=== PATIENT | female | born 1985 | race Caucasian/White ===

== ENCOUNTER 2017-08-11 10:07 | Inpatient (IN) | payer MEDICAID ==
[2017-08-11] MEDS ORDERED: LIDOCAINE 1% (MPF) 30 ML INJ INJ (11:00)
[2017-08-11] MEDS ORDERED: OXYTOCIN 30 UNITS/LR 500 ML IV (11:00)
[2017-08-11] MEDS ORDERED: BUTORPHANOL 2 MG INJ IV ×2 (11:00)
[2017-08-11] MEDS ORDERED: CARBOPROST 250 MCG INJ IM (11:00)
[2017-08-11] MEDS ORDERED: MISOPROSTOL 200 MCG TAB PR (11:00)
[2017-08-11] MEDS ORDERED: METHYLERGONOVINE 0.2 MG INJ IM (11:00)
[2017-08-11 11:19] LABS: ADD MAN DIFF? NO
[2017-08-11 11:21] LABS: WHITE BLOOD COUNT 7.6 10^3/ul (4.8-10.8)
[2017-08-11 11:21] LABS: BASOPHILS % 0.4 % (0.0-2.0); EOSINOPHILS # 0.1 10^3/ul (0.0-0.5); EOSINOPHILS % 1.1 % (0.0-7.0); HEMATOCRIT 36.1 % (37.0-47.0); HEMOGLOBIN 12.2 g/dl (12.0-16.0); LYMPHOCYTES # 1.5 10^3/ul (0.8-2.9); LYMPHOCYTES % 19.6 % (15.0-51.0); MEAN CORPUSCULAR HEMOGLOBIN 30.7 pg (29.0-33.0); MEAN CORPUSCULAR HGB CONC 33.8 g/dl (32.0-37.0); MEAN CORPUSCULAR VOLUME 90.7 fl (82.0-101.0); MEAN PLATELET VOLUME 10.1 fl (7.4-10.4); MONOCYTE # 0.5 10^3/ul (0.3-0.9); MONOCYTES % 6.7 % (0.0-11.0); NEUTROPHIL # 5.4 10^3/ul (1.6-7.5); NEUTROPHILS % 71.7 % (39.0-77.0); PLATELET COUNT 261 10^3/UL (140-415); RED BLOOD COUNT 3.98 10^6/ul (4.20-5.40)
[2017-08-11 11:24] LABS: INR 0.83; PROTIME 11.5 Sec (11.9-14.9); PT RATIO 0.9
[2017-08-11 11:25] LABS: PARTIAL THROMBOPLASTIN TIME 28.2 Sec (25.0-35.0)
[2017-08-11] MEDS: LACTATED RINGER'S 1,000 ML IV ×4 (11:37→20:41)
[2017-08-11 11:58] LABS: HEPATITIS B SURFACE ANTIGEN NEGATIVE (NEGATIVE)
[2017-08-11] MEDS: DINOPROSTONE 10 MG VAG SUPP VAG (15:06)
[2017-08-11] MEDS: OXYTOCIN 30 UNITS/LR 500 ML IV (16:02)
[2017-08-11] MEDS ORDERED: FENTAnyl 2MCG/ML-ROPIV 0.2% 100 ML (19:34)
[2017-08-11] MEDS ORDERED: NALOXONE (0.4 MG/ML) INJ IV (20:00)
[2017-08-11] MEDS: FENTAnyl 2MCG/ML-ROPIV 0.2% 100 ML BAG EPI (20:41)
[2017-08-11 20:53] LABS: RAPID PLASMA REAGIN NONREACTIVE (NR)
[2017-08-12] MEDS: ONDANSETRON 4 MG INJ IV (00:42)
[2017-08-12] MEDS: LACTATED RINGER'S 1,000 ML IV (01:00)
[2017-08-12] MEDS: FENTAnyl 2MCG/ML-ROPIV 0.2% 100 ML BAG EPI (02:28)
[2017-08-12] MEDS: OXYTOCIN 30 UNITS/LR 500 ML IV ×2 (05:11→05:32)
[2017-08-12] MEDS: IBUPROFEN 600 MG TAB PO ×4 (06:08→23:32)
[2017-08-12] MEDS ORDERED: OXYCODONE/ASPIRIN (4.88/325) TAB PO (08:00)
[2017-08-12] MEDS ORDERED: OXYTOCIN 30 UNITS/LR 500 ML IV (08:00)
[2017-08-12] MEDS ORDERED: METHYLERGONOVINE 0.2 MG INJ IM (08:00)
[2017-08-12] MEDS ORDERED: MISOPROSTOL 200 MCG TAB PR (08:00)
[2017-08-12] MEDS ORDERED: CARBOPROST 250 MCG INJ IM (08:00)
[2017-08-12] MEDS ORDERED: ZOLPIDEM 5 MG TAB PO (08:00)
[2017-08-12] MEDS ORDERED: OXYCODONE/ASPIRIN (4.88/325) TAB (08:09)
[2017-08-12] MEDS: OXYCODONE/ASPIRIN (4.88/325) TAB PO (08:22)
[2017-08-12] MEDS: LANOLIN 7 GM TUBE TOP (10:35)
[2017-08-12] MEDS: SENNA/DOCUSATE NA (8.6MG/50MG) TAB PO ×2 (10:35→21:15)
[2017-08-12] MEDS: BENZOCAINE 20% 56 ML SPRAY TOP (10:35)
[2017-08-12] MEDS: WITCH HAZEL/GLYCERIN PAD PR (10:35)
[2017-08-13] MEDS: IBUPROFEN 600 MG TAB PO ×4 (06:00→23:24)
[2017-08-13] MEDS ORDERED: CEFAZOLIN 1 GM INJ (07:00)
[2017-08-13] MEDS: SENNA/DOCUSATE NA (8.6MG/50MG) TAB PO ×2 (07:09→21:16)
[2017-08-13] MEDS: DIPHTH/TET/ACEL PERTUSS (ADULT) 0.5 ML VIAL IM* (10:06)
[2017-08-13 10:08] LABS: ADD MAN DIFF? NO
[2017-08-13 10:16] LABS: WHITE BLOOD COUNT 6.9 10^3/ul (4.8-10.8)
[2017-08-13 10:16] LABS: BASOPHILS % 0.4 % (0.0-2.0); EOSINOPHILS # 0.1 10^3/ul (0.0-0.5); EOSINOPHILS % 1.7 % (0.0-7.0); HEMOGLOBIN 10.5 g/dl (12.0-16.0); LYMPHOCYTES # 1.3 10^3/ul (0.8-2.9); MEAN CORPUSCULAR HEMOGLOBIN 31.3 pg (29.0-33.0); MEAN CORPUSCULAR HGB CONC 33.9 g/dl (32.0-37.0); MEAN CORPUSCULAR VOLUME 92.3 fl (82.0-101.0); MEAN PLATELET VOLUME 9.8 fl (7.4-10.4); MONOCYTE # 0.4 10^3/ul (0.3-0.9); MONOCYTES % 5.6 % (0.0-11.0); NEUTROPHILS % 72.9 % (39.0-77.0); PLATELET COUNT 204 10^3/UL (140-415); RED BLOOD COUNT 3.36 10^6/ul (4.20-5.40); RED CELL DISTRIBUTION WIDTH 14.3 % (11.5-14.5)
[2017-08-13] MEDS ORDERED: METOCLOPRAMIDE 10 MG INJ (13:10)
[2017-08-13] MEDS ORDERED: MIDAZOLAM 1 MG/ML 2 ML INJ (13:11)
[2017-08-13] MEDS ORDERED: morphine SULFATE/PF (10 MG/10 ML) INJ (13:12)
[2017-08-13] MEDS ORDERED: PROPOFOL 20 ML (13:37)
[2017-08-13] MEDS ORDERED: EPHEDrine SULFATE 50 MG/5 ML SYG (13:37)
[2017-08-13] MEDS: BUPIVACAINE 0.25%/EPI (SDV) 30 ML INJ (13:44)
[2017-08-13] MEDS ORDERED: ONDANSETRON 4 MG INJ (14:01)
[2017-08-13] MEDS ORDERED: KETOROLAC 30 MG INJ ×2 (14:02→15:08)
[2017-08-13] MEDS ORDERED: KETOROLAC 60 MG INJ IM (14:18)
[2017-08-13] MEDS ORDERED: LACTATED RINGER'S 1,000 ML IV (14:18)
[2017-08-13] MEDS ORDERED: DIPHENHYDRAMINE 50 MG INJ IV (14:30)
[2017-08-13] MEDS ORDERED: HYDROmorphONE (0.2 MG/ML) 10ML SYG IV ×3 (14:30)
[2017-08-13] MEDS ORDERED: ONDANSETRON 4 MG INJ IV (14:30)
[2017-08-13] MEDS ORDERED: MEPERIDINE 25 MG INJ IV (14:30)
[2017-08-13] MEDS: BUTORPHANOL 2 MG INJ IM (15:11)
[2017-08-13] MEDS: KETOROLAC 30 MG INJ IM (15:17)
[2017-08-13] MEDS: CEFAZOLIN 2 GM/50 ML (PMX) 50 ML IVPB (15:18)
[2017-08-13] MEDS ORDERED: LACTATED RINGER'S 1,000 ML IV* (15:54)
[2017-08-13] MEDS ORDERED: DIBUCAINE 1% 30 GM OINT PR (16:00)
[2017-08-13] MEDS ORDERED: HYDROCODONE/APAP (5/325) TAB PO ×2 (16:00)
[2017-08-13] MEDS ORDERED: WITCH HAZEL/GLYCERIN PAD PR (16:00)
[2017-08-13] MEDS ORDERED: BENZOCAINE 20% 56 ML SPRAY TOP (16:00)
[2017-08-13] MEDS ORDERED: LANOLIN 7 GM TUBE TOP (16:00)
[2017-08-13] MEDS ORDERED: ZOLPIDEM 5 MG TAB PO (16:00)
[2017-08-13] MEDS: LACTATED RINGER'S 500 ML IV (16:21)
[2017-08-13] MEDS: CEPHALEXIN 500 MG CAP PO ×2 (18:00→23:24)
[2017-08-13] MEDS: MAGNESIUM HYDROXIDE 30ML CUP PO (21:16)
[2017-08-14] MEDS: CEPHALEXIN 500 MG CAP PO ×2 (05:32→11:34)
[2017-08-14] MEDS: IBUPROFEN 600 MG TAB PO ×2 (05:32→11:34)
[2017-08-14] MEDS: SENNA/DOCUSATE NA (8.6MG/50MG) TAB PO (08:21)
[2017-08-14] MEDS: MAGNESIUM HYDROXIDE 30ML CUP PO (08:21)
[2017-08-14 08:45] LABS: ADD MAN DIFF? NO
[2017-08-14 08:55] LABS: WHITE BLOOD COUNT 7.2 10^3/ul (4.8-10.8)
[2017-08-14 08:55] LABS: BASOPHILS % 0.3 % (0.0-2.0); EOSINOPHILS # 0.1 10^3/ul (0.0-0.5); EOSINOPHILS % 1.2 % (0.0-7.0); HEMATOCRIT 31.3 % (37.0-47.0); HEMOGLOBIN 10.5 g/dl (12.0-16.0); LYMPHOCYTES # 1.6 10^3/ul (0.8-2.9); LYMPHOCYTES % 22.1 % (15.0-51.0); MEAN CORPUSCULAR HEMOGLOBIN 31.2 pg (29.0-33.0); MEAN CORPUSCULAR HGB CONC 33.5 g/dl (32.0-37.0); MEAN CORPUSCULAR VOLUME 92.9 fl (82.0-101.0); MEAN PLATELET VOLUME 9.8 fl (7.4-10.4); MONOCYTE # 0.5 10^3/ul (0.3-0.9); MONOCYTES % 6.6 % (0.0-11.0); NEUTROPHILS % 69.4 % (39.0-77.0); PLATELET COUNT 222 10^3/UL (140-415); RED BLOOD COUNT 3.37 10^6/ul (4.20-5.40); RED CELL DISTRIBUTION WIDTH 14.6 % (11.5-14.5)
[2017-08-15] MEDS ORDERED: VARICELLA VACCINE LIVE/PF 1,350 UNIT/0.5 ML ML SC* (09:00)
[2017-08-15] MEDS ORDERED: MEASLES,MUMPS,RUBELLA VACCINE INJ SC* (09:00)
[2017-08-15] MEDS ORDERED: DIPHTH/TET/ACEL PERTUSS (ADULT) 0.5 ML VIAL IM* (09:00)
== END 2017-08-14 13:10 | disposition home or self-care (01) | DRG 941 ==
LOC: L-D 10:07 → PP1 08-12 10:53
PROVIDERS: Obstetrics & Gynecology
PROC: 3E0P7VZ Introduction of Hormone into Female Reproductive, Via Natural or Artificial Opening (ICD-10-PCS; 2017-08-11 10:00)
PROC: 0UL70ZZ Occlusion of Bilateral Fallopian Tubes, Open Approach (ICD-10-PCS; 2017-08-13 12:30)
PROC: 10E0XZZ Delivery of Products of Conception, External Approach (ICD-10-PCS; principal; 2017-08-13 13:09)
DX: Z37.0 Single live birth (principal); O80 Encounter for full-term uncomplicated delivery; Z30.2 Encounter for sterilization
CPT/HCPCS: 76815; 76816; 85025; 85610; 85730; 86592; 86885; 86900; 86901; 87086; 87340; 88302

== ENCOUNTER 2018-11-10 06:29 | Emergency (ER) | payer MEDICAID ==
[2018-11-10 06:55] LABS: ADD MAN DIFF? NO
[2018-11-10 06:57] LABS: ADD UMIC YES; UR ASCORBIC ACID NEGATIVE (NEGATIVE); UR BACTERIA FEW /HPF (NONE SEEN); UR BILIRUBIN (Dip) NEGATIVE (NEGATIVE); UR BLOOD (Dip) 2+ mg/dL (NEGATIVE); UR CLARITY SLIGHTLY CLOUDY (CLEAR); UR COLOR YELLOW (YELLOW); UR GLUCOSE (Dip) NEGATIVE (NEGATIVE); UR KETONES (Dip) NEGATIVE (NEGATIVE); UR LEUKOCYTE ESTERASE (Dip) 2+ Leu/ul (NEGATIVE); UR NITRITE (Dip) NEGATIVE (NEGATIVE); UR RBC 5 /HPF (0-5); UR SPECIFIC GRAVITY (Dip) 1.025 (1.003-1.030); UR SQUAMOUS EPITHELIAL CELL MODERATE /HPF (FEW); UR TOTAL PROTEIN (Dip) NEGATIVE (NEGATIVE); UR UROBILINOGEN (Dip) NEGATIVE (NEGATIVE); UR WBC 15 /HPF (0-5)
[2018-11-10 06:58] LABS: BASOPHILS % 0.5 % (0.0-2.0); EOSINOPHILS # 0.2 10^3/ul (0.0-0.5); EOSINOPHILS % 2.2 % (0.0-7.0); HEMATOCRIT 38.7 % (37.0-47.0); HEMOGLOBIN 12.7 g/dl (12.0-16.0); LYMPHOCYTES # 2.5 10^3/ul (0.8-2.9); LYMPHOCYTES % 31.3 % (15.0-51.0); MEAN CORPUSCULAR HEMOGLOBIN 29.8 pg (29.0-33.0); MEAN CORPUSCULAR HGB CONC 32.8 g/dl (32.0-37.0); MEAN CORPUSCULAR VOLUME 90.8 fl (82.0-101.0); MEAN PLATELET VOLUME 9.6 fl (7.4-10.4); MONOCYTE # 0.6 10^3/ul (0.3-0.9); MONOCYTES % 6.8 % (0.0-11.0); NEUTROPHIL # 4.7 10^3/ul (1.6-7.5); NEUTROPHILS % 58.8 % (39.0-77.0); PLATELET COUNT 292 10^3/UL (140-415); RED BLOOD COUNT 4.26 10^6/ul (4.20-5.40); RED CELL DISTRIBUTION WIDTH 12.4 % (11.5-14.5)
[2018-11-10 06:58] LABS: WHITE BLOOD COUNT 8.1 10^3/ul (4.8-10.8)
[2018-11-10] MEDS: morphine 4 MG/ML VIAL IV (07:00)
[2018-11-10] MEDS: KETOROLAC 15 MG INJ IV (07:00)
[2018-11-10] MEDS: ONDANSETRON 4 MG INJ IV (07:00)
[2018-11-10] MEDS: SOD CHLORIDE 0.9% 150 ML IV (07:09)
[2018-11-10] MEDS: SOD CHLORIDE 0.9% 1,000 ML IV (07:31)
[2018-11-10 07:37] LABS: ALBUMIN/GLOBULIN RATIO 1.48; ANION GAP 12 (5-13); BILIRUBIN,TOTAL 0.2 mg/dl (0.2-1.3); Estimated GFR > 60 mL/min (>60)
[2018-11-10 07:45] LABS: ALANINE AMINOTRANSFERASE 29 IU/L (13-69); ALBUMIN 4.6 g/dl (3.3-4.9); ALKALINE PHOSPHATASE 132 IU/L (42-121); ASPARTATE AMINO TRANSFERASE 20 IU/L (15-46); BILIRUBIN,INDIRECT 0.2 mg/dl (0-1.1); BLOOD UREA NITROGEN 20 mg/dl (7-20); CALCIUM 9.7 mg/dl (8.4-10.2); CARBON DIOXIDE 24 mmol/L (21-31); CHLORIDE 106 mmol/L (97-110); CREATININE 0.56 mg/dl (0.44-1.00); GLUCOSE 122 mg/dl (70-220); LIPASE 148 U/L (23-300); POTASSIUM 4.2 mmol/L (3.5-5.1); SODIUM 142 mmol/L (135-144); TOTAL PROTEIN 7.7 g/dl (6.1-8.1)
[2018-11-10] MEDS: PIPER-TAZO 3.375 GM IV (PMX) 100 ML IVPB (08:17)
== END 2018-11-10 09:09 | disposition home or self-care (01) ==
LOC: FTE 06:29
DX: K81.9 Cholecystitis, unspecified (principal)
CPT/HCPCS: 36415; 76705; 80053; 81001; 81025; 83690; 85025; 96361; 96374; 96375; 99285-25

== ENCOUNTER 2018-11-29 03:50 | Emergency (ER) | payer MEDICAID ==
[2018-11-29] MEDS: ONDANSETRON (ODT) 4 MG TAB ODT (04:30)
[2018-11-29] MEDS: KETOROLAC 30 MG INJ IM (04:36)
[2018-11-29 04:46] LABS: ADD MAN DIFF? NO
[2018-11-29 04:48] LABS: WHITE BLOOD COUNT 10.1 10^3/ul (4.8-10.8)
[2018-11-29 04:48] LABS: BASOPHILS % 0.4 % (0.0-2.0); EOSINOPHILS # 0.3 10^3/ul (0.0-0.5); EOSINOPHILS % 2.7 % (0.0-7.0); HEMOGLOBIN 12.4 g/dl (12.0-16.0); LYMPHOCYTES % 29.7 % (15.0-51.0); MEAN CORPUSCULAR HEMOGLOBIN 30.3 pg (29.0-33.0); MEAN CORPUSCULAR HGB CONC 33.5 g/dl (32.0-37.0); MEAN CORPUSCULAR VOLUME 90.5 fl (82.0-101.0); MEAN PLATELET VOLUME 10.3 fl (7.4-10.4); MONOCYTE # 0.6 10^3/ul (0.3-0.9); MONOCYTES % 6.2 % (0.0-11.0); NEUTROPHIL # 6.1 10^3/ul (1.6-7.5); NEUTROPHILS % 60.8 % (39.0-77.0); PLATELET COUNT 287 10^3/UL (140-415); RED BLOOD COUNT 4.09 10^6/ul (4.20-5.40); RED CELL DISTRIBUTION WIDTH 12.4 % (11.5-14.5)
[2018-11-29 04:49] LABS: ADD UMIC YES; UR ASCORBIC ACID NEGATIVE (NEGATIVE); UR BACTERIA FEW /HPF (NONE SEEN); UR BILIRUBIN (Dip) NEGATIVE (NEGATIVE); UR BLOOD (Dip) 2+ mg/dL (NEGATIVE); UR CLARITY SLIGHTLY CLOUDY (CLEAR); UR COLOR YELLOW (YELLOW); UR GLUCOSE (Dip) NEGATIVE (NEGATIVE); UR KETONES (Dip) NEGATIVE (NEGATIVE); UR LEUKOCYTE ESTERASE (Dip) TRACE Leu/ul (NEGATIVE); UR NITRITE (Dip) NEGATIVE (NEGATIVE); UR RBC 4 /HPF (0-5); UR SPECIFIC GRAVITY (Dip) 1.021 (1.003-1.030); UR SQUAMOUS EPITHELIAL CELL FEW /HPF (FEW); UR TOTAL PROTEIN (Dip) NEGATIVE (NEGATIVE); UR UROBILINOGEN (Dip) NEGATIVE (NEGATIVE); UR WBC 6 /HPF (0-5)
[2018-11-29 05:04] LABS: ALANINE AMINOTRANSFERASE 29 IU/L (13-69); ALBUMIN 4.5 g/dl (3.3-4.9); ALKALINE PHOSPHATASE 94 IU/L (42-121); ANION GAP 13 (5-13); ASPARTATE AMINO TRANSFERASE 21 IU/L (15-46); BILIRUBIN,INDIRECT 0.3 mg/dl (0-1.1); BILIRUBIN,TOTAL 0.3 mg/dl (0.2-1.3); BLOOD UREA NITROGEN 16 mg/dl (7-20); CALCIUM 9.7 mg/dl (8.4-10.2); CARBON DIOXIDE 24 mmol/L (21-31); CHLORIDE 103 mmol/L (97-110); CREATININE 0.55 mg/dl (0.44-1.00); Estimated GFR > 60 mL/min (>60); GLUCOSE 111 mg/dl (70-220); LIPASE 123 U/L (23-300); POTASSIUM 4.1 mmol/L (3.5-5.1); SODIUM 140 mmol/L (135-144); TOTAL PROTEIN 7.7 g/dl (6.1-8.1)
== END 2018-11-29 05:55 | disposition home or self-care (01) ==
LOC: FTE 03:50
DX: K80.50 Calculus of bile duct without cholangitis or cholecystitis without obstruction (principal)
CPT/HCPCS: 36415; 76705; 80053; 81001; 81025; 83690; 85025; 96372; 99285-25

== ENCOUNTER 2019-02-05 01:24 | Inpatient (IN) | payer MEDICAID ==
[2019-02-05] MEDS: morphine 4 MG/ML VIAL IV (01:56)
[2019-02-05] MEDS: SOD CHLORIDE 0.9% 1,000 ML IV ×4 (01:56→21:38)
[2019-02-05] MEDS: ONDANSETRON 4 MG INJ IV ×2 (01:57→20:30)
[2019-02-05] MEDS: KETOROLAC 15 MG INJ IV (02:30)
[2019-02-05 02:33] LABS: ADD MAN DIFF? NO
[2019-02-05 02:36] LABS: WHITE BLOOD COUNT 9.5 10^3/ul (4.8-10.8)
[2019-02-05 02:36] LABS: BASOPHIL # 0.1 10^3/ul (0.0-0.1); BASOPHILS % 0.6 % (0.0-2.0); EOSINOPHILS # 0.2 10^3/ul (0.0-0.5); EOSINOPHILS % 2.2 % (0.0-7.0); HEMATOCRIT 36.9 % (37.0-47.0); HEMOGLOBIN 12.5 g/dl (12.0-16.0); LYMPHOCYTES # 3.6 10^3/ul (0.8-2.9); LYMPHOCYTES % 37.4 % (15.0-51.0); MEAN CORPUSCULAR HEMOGLOBIN 29.6 pg (29.0-33.0); MEAN CORPUSCULAR HGB CONC 33.9 g/dl (32.0-37.0); MEAN CORPUSCULAR VOLUME 87.4 fl (82.0-101.0); MEAN PLATELET VOLUME 10.3 fl (7.4-10.4); MONOCYTE # 0.6 10^3/ul (0.3-0.9); MONOCYTES % 6.2 % (0.0-11.0); NEUTROPHIL # 5.1 10^3/ul (1.6-7.5); NEUTROPHILS % 53.4 % (39.0-77.0); PLATELET COUNT 303 10^3/UL (140-415); RED BLOOD COUNT 4.22 10^6/ul (4.20-5.40); RED CELL DISTRIBUTION WIDTH 12.3 % (11.5-14.5)
[2019-02-05 02:53] LABS: ALANINE AMINOTRANSFERASE 32 IU/L (13-69); ALBUMIN 4.9 g/dl (3.3-4.9); ALBUMIN/GLOBULIN RATIO 1.28; ALKALINE PHOSPHATASE 95 IU/L (42-121); ANION GAP 14 (5-13); ASPARTATE AMINO TRANSFERASE 30 IU/L (15-46); BILIRUBIN,INDIRECT 0.3 mg/dl (0-1.1); BILIRUBIN,TOTAL 0.3 mg/dl (0.2-1.3); BLOOD UREA NITROGEN 24 mg/dl (7-20); CALCIUM 9.8 mg/dl (8.4-10.2); CARBON DIOXIDE 25 mmol/L (21-31); CHLORIDE 103 mmol/L (97-110); CREATININE 0.65 mg/dl (0.44-1.00); Estimated GFR > 60 mL/min (>60); GLUCOSE 124 mg/dl (70-220); LIPASE 138 U/L (23-300); POTASSIUM 3.7 mmol/L (3.5-5.1); SODIUM 142 mmol/L (135-144); TOTAL PROTEIN 8.7 g/dl (6.1-8.1)
[2019-02-05 02:54] LABS: INR 0.88; PT RATIO 0.9
[2019-02-05] MEDS ORDERED: NACL 0.9% 3 ML SYG IV (03:30)
[2019-02-05] MEDS ORDERED: DOCUSATE SODIUM 100 MG CAP PO (03:30)
[2019-02-05] MEDS ORDERED: ONDANSETRON 4 MG INJ IV ×3 (03:30→18:30)
[2019-02-05] MEDS: PIPER-TAZO 3.375 GM IV (PMX) 100 ML IVPB ×3 (06:04→19:20)
[2019-02-05] MEDS: ACETAMINOPHEN 325 MG TAB PO (09:05)
[2019-02-05] MEDS ORDERED: NEOSTIGMINE 3 MG/3 ML SYRINGE (17:29)
[2019-02-05] MEDS ORDERED: ONDANSETRON 4 MG INJ (17:29)
[2019-02-05] MEDS ORDERED: ROCURONIUM 50 MG INJ (17:29)
[2019-02-05] MEDS ORDERED: KETOROLAC 30 MG INJ (17:29)
[2019-02-05] MEDS ORDERED: PROPOFOL 20 ML (17:29)
[2019-02-05] MEDS ORDERED: GLYCOPYRROLATE 0.4 MG INJ (17:29)
[2019-02-05] MEDS ORDERED: METOCLOPRAMIDE 10 MG INJ (17:29)
[2019-02-05] MEDS ORDERED: FENTAnyl 50 MCG/ML VIAL IV ×3 (17:30)
[2019-02-05] MEDS ORDERED: KETOROLAC 30 MG INJ IV (17:30)
[2019-02-05] MEDS ORDERED: DIPHENHYDRAMINE 50 MG INJ IV (17:30)
[2019-02-05] MEDS ORDERED: HYDROmorphONE 1 MG/5 ML IV SYRINGE IV ×3 (17:30)
[2019-02-05] MEDS ORDERED: ROPIVACAINE 0.5 % 30 ML VIAL (17:32)
[2019-02-05] MEDS ORDERED: MIDAZOLAM 1 MG/ML 2 ML INJ (17:32)
[2019-02-05] MEDS ORDERED: morphine 2 MG INJ IV (18:30)
[2019-02-05] MEDS: BUPIVACAINE 0.25%/EPI (SDV) 30 ML INJ (18:43)
[2019-02-05] MEDS: MEPERIDINE 25 MG INJ IV (18:50)
[2019-02-05] MEDS: HYDROmorphONE 0.5 MG/0.5 ML SYG IV (20:24)
[2019-02-05] MEDS: OXYCODONE/ACETAMINOPHEN (5/325) TAB PO (21:34)
[2019-02-06] MEDS: PIPER-TAZO 3.375 GM IV (PMX) 100 ML IVPB ×3 (00:22→11:48)
[2019-02-06] MEDS: HYDROmorphONE 0.5 MG/0.5 ML SYG IV ×5 (00:28→19:47)
[2019-02-06] MEDS: OXYCODONE/ACETAMINOPHEN (5/325) TAB PO ×3 (05:00→16:38)
[2019-02-06 05:40] LABS: ADD MAN DIFF? NO
[2019-02-06 05:50] LABS: WHITE BLOOD COUNT 10.3 10^3/ul (4.8-10.8)
[2019-02-06 05:50] LABS: BASOPHILS % 0.2 % (0.0-2.0); HEMATOCRIT 26.1 % (37.0-47.0); LYMPHOCYTES # 0.8 10^3/ul (0.8-2.9); LYMPHOCYTES % 8.2 % (15.0-51.0); MEAN CORPUSCULAR HEMOGLOBIN 30.7 pg (29.0-33.0); MEAN CORPUSCULAR HGB CONC 34.5 g/dl (32.0-37.0); MEAN CORPUSCULAR VOLUME 89.1 fl (82.0-101.0); MEAN PLATELET VOLUME 10.5 fl (7.4-10.4); MONOCYTE # 0.5 10^3/ul (0.3-0.9); MONOCYTES % 4.4 % (0.0-11.0); NEUTROPHIL # 8.9 10^3/ul (1.6-7.5); NEUTROPHILS % 86.8 % (39.0-77.0); PLATELET COUNT 253 10^3/UL (140-415); RED BLOOD COUNT 2.93 10^6/ul (4.20-5.40); RED CELL DISTRIBUTION WIDTH 12.5 % (11.5-14.5)
[2019-02-06 06:35] LABS: ALANINE AMINOTRANSFERASE 89 IU/L (13-69); ALBUMIN 3.6 g/dl (3.3-4.9); ALBUMIN/GLOBULIN RATIO 1.38; ALKALINE PHOSPHATASE 56 IU/L (42-121); ANION GAP 5 (5-13); ASPARTATE AMINO TRANSFERASE 74 IU/L (15-46); BILIRUBIN,INDIRECT 0.4 mg/dl (0-1.1); BILIRUBIN,TOTAL 0.4 mg/dl (0.2-1.3); BLOOD UREA NITROGEN 13 mg/dl (7-20); CALCIUM 8.2 mg/dl (8.4-10.2); CARBON DIOXIDE 24 mmol/L (21-31); CHLORIDE 105 mmol/L (97-110); CREATININE 0.54 mg/dl (0.44-1.00); Estimated GFR > 60 mL/min (>60); GLUCOSE 128 mg/dl (70-220); MAGNESIUM 1.8 mg/dl (1.7-2.5); POTASSIUM 3.9 mmol/L (3.5-5.1); SODIUM 134 mmol/L (135-144); TOTAL PROTEIN 6.2 g/dl (6.1-8.1)
[2019-02-06] MEDS: ONDANSETRON 4 MG INJ IV ×2 (11:49→19:47)
[2019-02-06 13:21] LABS: ADD MAN DIFF? NO
[2019-02-06 13:25] LABS: WHITE BLOOD COUNT 8.1 10^3/ul (4.8-10.8)
[2019-02-06 13:25] LABS: BASOPHILS % 0.2 % (0.0-2.0); HEMATOCRIT 23.6 % (37.0-47.0); HEMOGLOBIN 7.9 g/dl (12.0-16.0); LYMPHOCYTES # 1.3 10^3/ul (0.8-2.9); LYMPHOCYTES % 15.7 % (15.0-51.0); MEAN CORPUSCULAR HEMOGLOBIN 30.3 pg (29.0-33.0); MEAN CORPUSCULAR HGB CONC 33.5 g/dl (32.0-37.0); MEAN CORPUSCULAR VOLUME 90.4 fl (82.0-101.0); MEAN PLATELET VOLUME 10.1 fl (7.4-10.4); MONOCYTE # 0.5 10^3/ul (0.3-0.9); MONOCYTES % 6.5 % (0.0-11.0); NEUTROPHIL # 6.2 10^3/ul (1.6-7.5); NEUTROPHILS % 77.2 % (39.0-77.0); PLATELET COUNT 225 10^3/UL (140-415); RED BLOOD COUNT 2.61 10^6/ul (4.20-5.40); RED CELL DISTRIBUTION WIDTH 12.5 % (11.5-14.5)
[2019-02-07] MEDS: HYDROmorphONE 0.5 MG/0.5 ML SYG IV ×4 (00:09→17:37)
[2019-02-07 05:51] LABS: ADD MAN DIFF? NO
[2019-02-07 06:03] LABS: BASOPHILS % 0.3 % (0.0-2.0); EOSINOPHILS # 0.1 10^3/ul (0.0-0.5); EOSINOPHILS % 1.2 % (0.0-7.0); HEMOGLOBIN 7.6 g/dl (12.0-16.0); LYMPHOCYTES # 2.2 10^3/ul (0.8-2.9); LYMPHOCYTES % 32.8 % (15.0-51.0); MEAN CORPUSCULAR HEMOGLOBIN 31.4 pg (29.0-33.0); MEAN CORPUSCULAR HGB CONC 34.5 g/dl (32.0-37.0); MEAN CORPUSCULAR VOLUME 90.9 fl (82.0-101.0); MEAN PLATELET VOLUME 9.9 fl (7.4-10.4); MONOCYTE # 0.5 10^3/ul (0.3-0.9); MONOCYTES % 7.3 % (0.0-11.0); NEUTROPHIL # 3.8 10^3/ul (1.6-7.5); NEUTROPHILS % 58.2 % (39.0-77.0); PLATELET COUNT 197 10^3/UL (140-415); RED BLOOD COUNT 2.42 10^6/ul (4.20-5.40); RED CELL DISTRIBUTION WIDTH 12.7 % (11.5-14.5)
[2019-02-07 06:03] LABS: WHITE BLOOD COUNT 6.6 10^3/ul (4.8-10.8)
[2019-02-07] MEDS: ONDANSETRON 4 MG INJ IV (09:43)
[2019-02-07] MEDS: ACETAMINOPHEN 325 MG TAB PO ×2 (10:23→19:45)
[2019-02-07 11:42] LABS: ADD MAN DIFF? NO
[2019-02-07 11:53] LABS: BASOPHILS % 0.4 % (0.0-2.0); EOSINOPHILS # 0.1 10^3/ul (0.0-0.5); EOSINOPHILS % 0.8 % (0.0-7.0); HEMATOCRIT 22.9 % (37.0-47.0); HEMOGLOBIN 7.6 g/dl (12.0-16.0); LYMPHOCYTES # 1.6 10^3/ul (0.8-2.9); LYMPHOCYTES % 21.3 % (15.0-51.0); MEAN CORPUSCULAR HGB CONC 33.2 g/dl (32.0-37.0); MEAN CORPUSCULAR VOLUME 90.5 fl (82.0-101.0); MEAN PLATELET VOLUME 10.3 fl (7.4-10.4); MONOCYTE # 0.5 10^3/ul (0.3-0.9); MONOCYTES % 6.6 % (0.0-11.0); NEUTROPHIL # 5.4 10^3/ul (1.6-7.5); NEUTROPHILS % 70.6 % (39.0-77.0); PLATELET COUNT 211 10^3/UL (140-415); RED BLOOD COUNT 2.53 10^6/ul (4.20-5.40); RED CELL DISTRIBUTION WIDTH 12.7 % (11.5-14.5)
[2019-02-07 11:53] LABS: WHITE BLOOD COUNT 7.6 10^3/ul (4.8-10.8)
[2019-02-07 14:10] LABS: ADD UMIC NO; UR ASCORBIC ACID NEGATIVE (NEGATIVE); UR BILIRUBIN (Dip) NEGATIVE (NEGATIVE); UR BLOOD (Dip) NEGATIVE (NEGATIVE); UR CLARITY CLEAR (CLEAR); UR COLOR STRAW (YELLOW); UR GLUCOSE (Dip) NEGATIVE (NEGATIVE); UR KETONES (Dip) NEGATIVE (NEGATIVE); UR LEUKOCYTE ESTERASE (Dip) NEGATIVE Leu/ul (NEGATIVE); UR NITRITE (Dip) NEGATIVE (NEGATIVE); UR SPECIFIC GRAVITY (Dip) 1.005 (1.003-1.030); UR TOTAL PROTEIN (Dip) NEGATIVE (NEGATIVE); UR UROBILINOGEN (Dip) NEGATIVE (NEGATIVE)
[2019-02-07 17:30] LABS: HEMATOCRIT 23.4 % (37.0-47.0); HEMOGLOBIN 7.8 g/dl (12.0-16.0)
[2019-02-07] MEDS: OXYCODONE/ACETAMINOPHEN (5/325) TAB PO (23:15)
[2019-02-08] MEDS: OXYCODONE/ACETAMINOPHEN (5/325) TAB PO ×2 (06:25→12:11)
[2019-02-08 07:42] LABS: ADD MAN DIFF? NO
[2019-02-08 07:51] LABS: WHITE BLOOD COUNT 6.7 10^3/ul (4.8-10.8)
[2019-02-08 07:51] LABS: BASOPHILS % 0.4 % (0.0-2.0); EOSINOPHILS # 0.2 10^3/ul (0.0-0.5); EOSINOPHILS % 2.2 % (0.0-7.0); HEMATOCRIT 23.1 % (37.0-47.0); HEMOGLOBIN 7.8 g/dl (12.0-16.0); LYMPHOCYTES # 2.5 10^3/ul (0.8-2.9); LYMPHOCYTES % 37.9 % (15.0-51.0); MEAN CORPUSCULAR HEMOGLOBIN 30.8 pg (29.0-33.0); MEAN CORPUSCULAR HGB CONC 33.8 g/dl (32.0-37.0); MEAN CORPUSCULAR VOLUME 91.3 fl (82.0-101.0); MEAN PLATELET VOLUME 10.1 fl (7.4-10.4); MONOCYTE # 0.4 10^3/ul (0.3-0.9); MONOCYTES % 6.4 % (0.0-11.0); NEUTROPHIL # 3.5 10^3/ul (1.6-7.5); NEUTROPHILS % 52.7 % (39.0-77.0); PLATELET COUNT 224 10^3/UL (140-415); RED BLOOD COUNT 2.53 10^6/ul (4.20-5.40); RED CELL DISTRIBUTION WIDTH 12.5 % (11.5-14.5)
[2019-02-08] MEDS: BISACODYL (EC) 5 MG TAB PO (08:04)
[2019-02-08] MEDS: ACETAMINOPHEN 325 MG TAB PO (08:04)
[2019-02-08 08:06] LABS: PHOSPHORUS 3.1 mg/dl (2.5-4.9)
[2019-02-08 08:06] LABS: MAGNESIUM 2.1 mg/dl (1.7-2.5)
[2019-02-08 08:10] LABS: ANION GAP 8 (5-13); BLOOD UREA NITROGEN 12 mg/dl (7-20); CALCIUM 8.6 mg/dl (8.4-10.2); CARBON DIOXIDE 29 mmol/L (21-31); CHLORIDE 104 mmol/L (97-110); CREATININE 0.56 mg/dl (0.44-1.00); Estimated GFR > 60 mL/min (>60); GLUCOSE 96 mg/dl (70-220); POTASSIUM 3.6 mmol/L (3.5-5.1); SODIUM 141 mmol/L (135-144)
== END 2019-02-08 16:55 | disposition home or self-care (01) | DRG 419 ==
LOC: PP2 02-06 06:55 → E/R 01:24 → 5EC 03:28
PROC: 0FT44ZZ Resection of Gallbladder, Percutaneous Endoscopic Approach (ICD-10-PCS; principal; 2019-02-05 17:30)
PROC: 0F9440Z Drainage of Gallbladder with Drainage Device, Percutaneous Endoscopic Approach (ICD-10-PCS; 2019-02-05 17:30)
PROC: 0F9140Z Drainage of Right Lobe Liver with Drainage Device, Percutaneous Endoscopic Approach (ICD-10-PCS; 2019-02-05 17:30)
DX: K81.0 Acute cholecystitis (principal)
CPT/HCPCS: 36415; 74181; 76705; 80048; 80053; 81003; 81025; 83690; 83735; 84100; 85014; 85018; 85025; 85610; 88304; 93005; 96374; 96375; 99285-25